=== PATIENT | female | born 1965 | race Caucasian/White ===

== ENCOUNTER 2016-07-03 16:31 | Emergency (ER) | payer OTHER ==
[~2016-07-03] VITALS: Ht 177.8 cm; Wt 49.0 kg
[~2016-07-03 16:31] MED LIST: ACID CONTROL75 MG PO; AMBIEN10 MG PO; BACTRIM,SEPT1 TABLET PO; BENTYL10 MG PO; CIPRO500 MG PO; CLEOCIN300 MG PO; FLAGYL500 MG PO; HYDROCODON-ACE1 EAC7 PO; IBUPROFEN600 MG PO; KEFLEX500 MG PO; LORTAB 5-325 M1 EACH PO; MIRALAX255 GM PO; NORCO 5/3251 TABLET PO; PAXIL40 MG PO; PERCOCET 5/31 TABLET PO; PYRIDIUM100 MG PO; PYRIDIUM200 MG PO; TYLENOL WITH C1 EACH PO; VALTREX1000 MG PO; VIBRAMYCIN100 MG PO; ZOFRAN ODT4 MG PO
[2016-07-03 17:57] LABS: HEMATOCRIT 38.5 % (36.0-46.0); MCH 28.5 PG (29.0-34.0); MCHC 33.2 G/DL (30.0-36.0); MCV 85.7 FL (83-99); MEAN PLAT.VOLUME 9.8 uM^3 (9.5-12.4); PLATELET COUNT 332 K/uL (156-360); RBC DIS.WIDTH-CV 14.5 % (11.8-14.6); RBC DIS.WIDTH-SD 44.7 % (39-53); RED BLOOD COUNT 4.49 M/uL (3.80-5.20)
[2016-07-03 18:03] LABS: ADD MIUA? YES; BILIRUBIN NEGATIVE; BLOOD NEGATIVE; COLOR YELLOW ((YELLOW)); GLUCOSE (STRIP) NEGATIVE; KETONES NEGATIVE; LEUKOCYTES SMALL; NITRITE NEGATIVE; PROTEIN (STRIP) NEGATIVE; SPECIFIC GRAVITY 1.024 (1.000-1.030); UROBILINOGEN 0.2 MG/DL (0.2-1.0)
[2016-07-03 18:14] LABS: CHLORIDE 107 mEq/L (99-109); POTASSIUM 3.7 mEq/L (3.7-5.4); SODIUM 142 mEq/L (136-147)
[2016-07-03 18:17] LABS: GLUCOSE 96 mg/dL (70-99)
[2016-07-03 18:18] LABS: ANION GAP 13 MEQ/L (2-14)
[2016-07-03 18:19] LABS: TOTAL BILIRUBIN 0.2 mg/dL (0.0-1.0)
[2016-07-03 18:20] LABS: ALKALINE PHOSPHATASE 66 IU/L (3-129); GFR ESTIMATE (CALCULATED) > 59 mL/min/
[2016-07-03 18:21] LABS: UREA NITROGEN (BUN) 10 mg/dL (9-23)
[2016-07-03 18:21] LABS: BACTERIA 1+; CASTS NONE SEEN /LPF; CRYSTALS NONE SEEN; EPITHELIAL CELLS 2+; MUCUS NONE SEEN; PATHOLOGICAL CAST NONE SEEN; RED BLOOD CELLS 0-5 /HPF (0-5); SMALL ROUND CELL NONE SEEN; UCUL ADDED? NO; YEAST-LIKE CELL NONE SEEN
[2016-07-03 18:35] LABS: QUANTITATIVE HCG 8.4 MIU/ML
[2016-07-03 20:09] VITALS: BP 139/62
== END 2016-07-03 20:10 | disposition home or self-care (01) ==
LOC: EME 16:31
PROVIDERS: Nurse Practitioner Family
DX: R10.9 Unspecified abdominal pain (principal); R11.2 Nausea with vomiting, unspecified; Z87.891 Personal history of nicotine dependence
CPT/HCPCS: 80053; 81003; 84702; 85027; 99281; 99284

== ENCOUNTER 2016-07-20 15:27 | Emergency (ER) | payer OTHER ==
[~2016-07-20] VITALS: Ht 177.8 cm; Wt 47.7 kg
[2016-07-20 16:12] LABS: HEMATOCRIT 39.6 % (36.0-46.0); MCH 28.3 PG (29.0-34.0); MCHC 33.1 G/DL (30.0-36.0); MCV 85.5 FL (83-99); MEAN PLAT.VOLUME 9.8 uM^3 (9.5-12.4); PLATELET COUNT 305 K/uL (156-360); RBC DIS.WIDTH-CV 14.3 % (11.8-14.6); RBC DIS.WIDTH-SD 43.9 % (39-53); RED BLOOD COUNT 4.63 M/uL (3.80-5.20)
[2016-07-20 16:21] LABS: CHLORIDE 106 mEq/L (99-109); POTASSIUM 4.1 mEq/L (3.7-5.4); SODIUM 143 mEq/L (136-147)
[2016-07-20 16:23] LABS: GLUCOSE 101 mg/dL (70-99)
[2016-07-20 16:25] LABS: ANION GAP 10 MEQ/L (2-14); TOTAL BILIRUBIN 0.4 mg/dL (0.0-1.0)
[2016-07-20 16:27] LABS: ALKALINE PHOSPHATASE 66 IU/L (3-129); GFR ESTIMATE (CALCULATED) > 59 mL/min/
[2016-07-20 16:28] LABS: UREA NITROGEN (BUN) 8 mg/dL (9-23)
[2016-07-20 16:56] LABS: QUANTITATIVE HCG 9.1 MIU/ML
[2016-07-20 18:04] LABS: ADD MIUA? YES; BILIRUBIN NEGATIVE; BLOOD NEGATIVE; COLOR YELLOW ((YELLOW)); GLUCOSE (STRIP) NEGATIVE; KETONES NEGATIVE; LEUKOCYTES TRACE; NITRITE NEGATIVE; PROTEIN (STRIP) NEGATIVE; SPECIFIC GRAVITY 1.007 (1.000-1.030); UROBILINOGEN 0.2 MG/DL (0.2-1.0)
[2016-07-20 18:45] LABS: BACTERIA NONE SEEN; CASTS NONE SEEN /LPF; CRYSTALS NONE SEEN; EPITHELIAL CELLS RARE; MUCUS NONE SEEN; PATHOLOGICAL CAST NONE SEEN; RED BLOOD CELLS 0-5 /HPF (0-5); SMALL ROUND CELL NONE SEEN; UCUL ADDED? NO; WHITE BLOOD CELLS 0-5 /HPF (0-5); YEAST-LIKE CELL NONE SEEN
[2016-07-20 21:18] VITALS: BP 116/74
[2016-07-20 22:54] LABS: CANDIDA DNA PROBE NEGATIVE; GARDNERELLA DNA PROBE POSITIVE; INTERNAL CONTROL VALID? YES
[2016-07-23 12:37] LABS: CHLAMYDIA TRACHOMATIS NEGATIVE; NEISSERIA GONORRHOEAE NEGATIVE
== END 2016-07-20 21:19 | disposition home or self-care (01) ==
LOC: EME 15:27
PROVIDERS: Physician Assistant
DX: R10.31 Right lower quadrant pain (principal); R10.32 Left lower quadrant pain; R10.2 Pelvic and perineal pain; N89.8 Other specified noninflammatory disorders of vagina; N93.9 Abnormal uterine and vaginal bleeding, unspecified; Z87.891 Personal history of nicotine dependence
CPT/HCPCS: 74177; 76856; 80053; 81003; 84702; 85027; 87210; 87480; 87491; 87510; 87591; 87660; 99281; 99285; J3010; J7120

== ENCOUNTER 2017-05-10 19:39 | Emergency (ER) | payer OTHER ==
[~2017-05-10] VITALS: Ht 177.8 cm; Wt 48.8 kg
[2017-05-10 19:56] LABS: ADD MIUA? YES; BILIRUBIN NEGATIVE; BLOOD MODERATE; COLOR YELLOW ((YELLOW)); GLUCOSE (STRIP) NEGATIVE; KETONES NEGATIVE; LEUKOCYTES LARGE; NITRITE POSITIVE; PROTEIN (STRIP) 30; SPECIFIC GRAVITY 1.017 (1.000-1.030); UROBILINOGEN 0.2 MG/DL (0.2-1.0)
[2017-05-10 20:09] LABS: MCH 28.4 PG (29.0-34.0); MCHC 33.2 G/DL (30.0-36.0); MCV 85.5 FL (83-99); MEAN PLAT.VOLUME 9.9 uM^3 (9.5-12.4); PLATELET COUNT 298 K/uL (156-360); RBC DIS.WIDTH-CV 13.6 % (11.8-14.6); RBC DIS.WIDTH-SD 42.5 % (39-53); RED BLOOD COUNT 4.33 M/uL (3.80-5.20); WHITE BLOOD COUNT 6.7 K/uL (4.1-10.2)
[2017-05-10] MEDS ORDERED: CIPRO500 MG PO (20:14)
[2017-05-10 20:17] LABS: CASTS NONE SEEN /LPF; EPITHELIAL CELLS 4+ /HPF; MUCUS NONE SEEN /LPF
[2017-05-10 20:18] LABS: BACTERIA 4+ /HPF; RED BLOOD CELLS 0-5 /HPF (0-5); UCUL ADDED? YES; WHITE BLOOD CELLS TNTC /HPF (0-5)
[2017-05-10 20:19] LABS: CHLORIDE 102 mEq/L (99-109); POTASSIUM 3.9 mEq/L (3.7-5.4); SODIUM 139 mEq/L (136-147)
[2017-05-10 20:20] LABS: GLUCOSE 134 mg/dL (70-99)
[2017-05-10 20:22] LABS: ANION GAP 12 MEQ/L (2-14)
[2017-05-10 20:24] LABS: GFR ESTIMATE (CALCULATED) > 59 mL/min/
[2017-05-10 20:25] LABS: UREA NITROGEN (BUN) 12 mg/dL (9-23)
[2017-05-10 20:54] VITALS: BP 119/76
== END 2017-05-10 20:35 | disposition home or self-care (01) ==
LOC: EME 19:39
DX: N39.0 Urinary tract infection, site not specified (principal); K21.9 Gastro-esophageal reflux disease without esophagitis; F32.9 Major depressive disorder, single episode, unspecified; Z91.040 Latex allergy status; Z88.8 Allergy status to other drugs, medicaments and biological substances; Z87.891 Personal history of nicotine dependence
CPT/HCPCS: 80048; 81003; 85027; 87077; 87086; 87186; 99281; 99284

== ENCOUNTER → 2017-05-27 | Outpatient (CLI) | payer OTHER ==
[~2017-05-27] VITALS: Ht 177.8 cm; Wt 53.1 kg
[~2017-05-27] MED LIST changes: +MULTIPLE VITAM1 EAC4 PO; +PAXIL10 MG PO
== END | disposition home or self-care (01) ==
LOC: AMB 09:58
PROC: 0DB58ZX Excision of Esophagus, Via Natural or Artificial Opening Endoscopic, Diagnostic (ICD-10-PCS; principal; 2017-05-27)
DX: K21.9 Gastro-esophageal reflux disease without esophagitis (principal); R13.10 Dysphagia, unspecified; R63.4 Abnormal weight loss; Z68.1 Body mass index [BMI] 19.9 or less, adult; F41.1 Generalized anxiety disorder; Z87.891 Personal history of nicotine dependence
CPT/HCPCS: 88305; J2250; J3010

== ENCOUNTER 2017-06-15 18:37 | Emergency (ER) | payer OTHER ==
[~2017-06-15] VITALS: Ht 177.8 cm; Wt 50.1 kg
[2017-06-15 19:52] LABS: ADD MIUA? YES; BILIRUBIN NEGATIVE; BLOOD SMALL; COLOR YELLOW ((YELLOW)); GLUCOSE (STRIP) NEGATIVE; KETONES NEGATIVE; LEUKOCYTES MODERATE; NITRITE NEGATIVE; PROTEIN (STRIP) NEGATIVE; SPECIFIC GRAVITY 1.024 (1.000-1.030)
[2017-06-15 20:02] LABS: BACTERIA RARE /HPF; CALCIUM OXALATE CRYSTALS 4+ /HPF; EPITHELIAL CELLS 1+ /HPF; MUCUS 2+ /LPF; RED BLOOD CELLS 15-20 /HPF (0-5); UCUL ADDED? YES; WHITE BLOOD CELLS 30-40 /HPF (0-5)
[2017-06-15] MEDS ORDERED: BACTRIM,SEPT1 TABLET PO (20:16)
[2017-06-15] MEDS ORDERED: PYRIDIUM100 MG PO (20:16)
[2017-06-15 20:22] VITALS: BP 102/81
== END 2017-06-15 20:28 | disposition home or self-care (01) ==
LOC: EME 18:37
DX: N39.0 Urinary tract infection, site not specified (principal); F32.9 Major depressive disorder, single episode, unspecified; Z87.891 Personal history of nicotine dependence; Z90.89 Acquired absence of other organs; Z88.6 Allergy status to analgesic agent; Z91.040 Latex allergy status
CPT/HCPCS: 81003; 87086; 99281; 99284

== ENCOUNTER 2017-09-07 13:26 | Emergency (ER) | payer OTHER ==
[~2017-09-07] VITALS: Ht 177.8 cm; Wt 49.8 kg
[2017-09-07] MEDS ORDERED: ULTRAM50 MG PO (14:51)
[2017-09-07 15:23] VITALS: BP 118/67
== END 2017-09-07 15:25 | disposition home or self-care (01) ==
LOC: EME 13:26
DX: S22.31XA Fracture of one rib, right side, initial encounter for closed fracture (principal); W10.9XXA Fall (on) (from) unspecified stairs and steps, initial encounter; F32.9 Major depressive disorder, single episode, unspecified; Z87.891 Personal history of nicotine dependence; Z91.040 Latex allergy status; Z88.6 Allergy status to analgesic agent
CPT/HCPCS: 71101; 73502; 99281; 99283; J1885

== ENCOUNTER 2017-09-30 18:05 | Emergency (ER) | payer OTHER ==
[~2017-09-30] VITALS: Ht 177.8 cm; Wt 48.5 kg
[~2017-09-30 18:05] MED LIST changes: +ULTRAM50 MG PO
[2017-09-30] MEDS ORDERED: NAPROXEN500 MG PO (20:06)
[2017-09-30 20:33] VITALS: BP 120/93
== END 2017-09-30 20:38 | disposition home or self-care (01) ==
LOC: EME 18:05
DX: S20.211A Contusion of right front wall of thorax, initial encounter (principal); Y04.2XXA Assault by strike against or bumped into by another person, initial encounter; F32.9 Major depressive disorder, single episode, unspecified; Z91.040 Latex allergy status; Z88.6 Allergy status to analgesic agent; Z87.891 Personal history of nicotine dependence
CPT/HCPCS: 71046; 99281; 99283